=== PATIENT | female | born 1985 | race Caucasian/White ===

== ENCOUNTER 2017-01-21 09:12 | Emergency (ER) | payer BC ==
[2017-01-21 09:40] VITALS: BP 112/67
--- NOTE | 2017-01-21 09:48 | UC ---
Throat Pain/Nasal Chuckie HPI - HPI Summary HPI Summary: Sore throat & bilateral ear pain x2 days. [ End ] - History of Current Complaint Chief Complaint: UCGeneralIllness Stated Complaint: ST/EAR PAIN Time Seen by Provider: 01/21/17 09:41 Hx Obtained From: Patient Hx Last Menstrual Period: 01/02/17 ?: No Onset/Duration: Sudden Onset - Allergies/Home Medications Allergies/Adverse Reactions: Allergies Allergy/AdvReac Type Severity Reaction Status Date / Time No Known Allergies Allergy Verified 01/21/17 09:36 PMH/Surg Hx/FS Hx/Imm Hx Previously Healthy: Yes - Surgical History Surgical History: Yes Surgery Procedure, Year, and Place: L wrist to fix fx - Family History Known Family History: Positive: None - Social History Occupation: Employed Full-time Lives: With Family Alcohol Use: None Substance Use Type: None Smoking Status (MU): Never Smoked Tobacco - Immunization History Most Recent Tetanus Shot: 2011 Review of Systems Constitutional: Negative Skin: Negative Eyes: Negative ENT: Sore Throat, Ear Ache Respiratory: Negative Cardiovascular: Negative Gastrointestinal: Negative Genitourinary: Negative Motor: Negative Neurovascular: Negative Musculoskeletal: Negative Neurological: Negative Psychological: Negative All Other Systems Reviewed And Are Negative: Yes Physical Exam Triage Information Reviewed: Yes Appearance: Well-Appearing, No Pain Distress, Well-Nourished Vital Signs: Initial Vital Signs Temp 97.7 F 01/21/17 09:36 Pulse 57 01/21/17 09:36 Resp 16 01/21/17 09:36 BP 112/67 01/21/17 09:36 Pulse Ox 99 01/21/17 09:36 Vital Signs Reviewed: Yes Eye Exam: Normal ENT Exam: Normal ENT: Positive: Pharyngeal erythema, Nasal congestion, Nasal drainage, TM dull. Negative: Tonsillar swelling, Tonsillar exudate Dental Exam: Normal Neck exam: Normal Neck: Positive: 1 Respiratory Exam: Normal Cardiovascular Exam: Normal Musculoskeletal Exam: Normal Neurological Exam: Normal Psychological Exam: Normal Skin Exam: Normal Throat Pain/Nasal Course/Dx - Differential Dx/Diagnosis Differential Diagnosis/HQI/PQRI: Pharyngitis, Tonsillitis, URI Provider Diagnoses: viral pharyngitis Discharge - Discharge Plan Condition: Good Disposition: HOME Patient Education Materials: Pharyngitis (ED) Referrals: No Primary Care Phys,NOPCP [Primary Care Provider] - Additional Instructions: You had a negative screen for strep today
== END 2017-01-21 10:13 | disposition home or self-care (01) ==
LOC: UCCORT 09:12
DX: J02.8 Acute pharyngitis due to other specified organisms (principal); H92.03 Otalgia, bilateral
CPT/HCPCS: 87651; 99211; G0463

== ENCOUNTER 2018-01-26 11:36 | Emergency (ER) | payer BC, OTHER ==
[2018-01-26 12:41] VITALS: BP 99/60
[2018-01-26] MEDS ORDERED: Ibuprofen TAB* 600 MG PO ONE (13:25)
[2018-01-26] MEDS ORDERED: Amoxicillin PO (*) 500 MG CAP PO ONE (13:26)
--- NOTE | 2018-02-19 14:25 | UC ---
Ear Complaint HPI - HPI Summary HPI Summary: 5 days of right ear pain, popping and discomfort---began while flying this past week - History of Current Complaint Chief Complaint: UCEar Stated Complaint: RT EAR ACHE Time Seen by Provider: 01/26/18 13:21 Hx Obtained From: Patient Hx Last Menstrual Period: 12/19/17 ?: No Onset/Duration: Sudden Onset, Lasting Days - 5 Pain Intensity: 5 Pain Scale Used: 0-10 Numeric - Allergies/Home Medications Allergies/Adverse Reactions: Allergies Allergy/AdvReac Type Severity Reaction Status Date / Time No Known Allergies Allergy Verified 01/26/18 12:36 PMH/Surg Hx/FS Hx/Imm Hx Previously Healthy: Yes - Surgical History Surgical History: Yes Surgery Procedure, Year, and Place: L wrist to fix fx - Family History Known Family History: Positive: None - Social History Occupation: Employed Full-time Lives: Alone Alcohol Use: Occasionally Substance Use Type: None Smoking Status (MU): Never Smoked Tobacco - Immunization History Most Recent Tetanus Shot: 2011 Review of Systems Constitutional: Negative Skin: Negative Eyes: Negative ENT: Ear Ache - right Respiratory: Negative Cardiovascular: Negative Gastrointestinal: Negative Genitourinary: Negative Motor: Negative Neurovascular: Negative Musculoskeletal: Negative Neurological: Negative Psychological: Negative Is Patient Immunocompromised?: No All Other Systems Reviewed And Are Negative: Yes Physical Exam Triage Information Reviewed: Yes Appearance: Well-Appearing, No Pain Distress, Well-Nourished Vital Signs: Initial Vital Signs Temp 97.4 F 01/26/18 12:36 Pulse 60 01/26/18 12:36 Resp 16 01/26/18 12:36 BP 99/60 01/26/18 12:36 Pulse Ox 100 01/26/18 12:36 Vital Signs Reviewed: Yes Eye Exam: Normal Eyes: Positive: Conjunctiva Clear ENT Exam: Normal ENT: Positive: Normal ENT inspection, Hearing grossly normal, Pharynx normal, TMs normal - left, TM bulging - right, TM red - right, Uvula midline. Negative : Nasal congestion, Tonsillar swelling, Trismus, Muffled voice, Hoarse voice, Dental tenderness, Sinus tenderness Dental Exam: Normal Neck exam: Normal Neck: Positive: Supple, Nontender Respiratory Exam: Normal Respiratory: Positive: Chest non-tender, Lungs clear, Normal breath sounds, No respiratory distress, No accessory muscle use Cardiovascular Exam: Normal Cardiovascular: Positive: RRR, Pulses Normal, Brisk Capillary Refill Musculoskeletal Exam: Normal Musculoskeletal: Positive: Strength Intact, ROM Intact, No Edema Neurological Exam: Normal Neurological: Positive: Alert, Muscle Tone Normal Psychological Exam: Normal Skin Exam: Normal Ear Complaint Course/Dx - Course Course Of Treatment: Sudafed, ibuprofen amoxicillin, warm compress follow with pcp - Differential Dx/Diagnosis Provider Diagnoses: Right otitis serrous Discharge - Sign-Out/Discharge Documenting (check all that apply): Discharge/Admit/Transfer - Discharge Plan Condition: Stable Disposition: HOME Prescriptions: Amoxicillin PO (*) [Amoxicillin 875 MG (*)] 875 mg PO BID #20 tab Patient Education Materials: Ibuprofen (By mouth), Pseudoephedrine (By mouth), Serous Otitis Media (ED), Warm Compress or Soak (ED) Referrals: KENNA Cary [Medical Doctor] - No Primary Care Phys,NOPCP [Primary Care Provider] - - Billing Disposition and Condition Condition: STABLE Disposition: Home
== END 2018-01-26 13:37 | disposition home or self-care (01) ==
LOC: UCCORT 11:36
DX: H65.91 Unspecified nonsuppurative otitis media, right ear (principal)
CPT/HCPCS: 99212; A9270-GY; G0463